=== PATIENT | female | born 1945 | race Caucasian/White ===

== ENCOUNTER → 2016-06-06 | Outpatient (CLI) | payer OTHER, BC ==
[~2016-06-06] MED LIST: ASP325 PO; COZ50 PO; MEV20 PO; MOTRIN800 MG PO; PRI20 PO; PROTONIX40 MG PO; PROZ10 PO
[2016-06-06 11:15] LABS: BASOPHIL % 0.7 % (0-2); RED CELL DISTRIBUTION WIDTH 14.2 % (11.5-14.5)
[2016-06-06 11:19] LABS: PLATELET COUNT 112 x10^3mcL (130-400)
[2016-06-06 11:22] LABS: CALCIUM 8.9 mg/dL (8.5-10.1); CHLORIDE SERUM 105 mmol/L (98-107); CREATININE SERUM 0.9 mg/dL (0.6-1.0); GLUCOSE SERUM 98 mg/dL (74-106); POTASSIUM SERUM 4.4 mmol/L (3.5-5.1); SODIUM SERUM 139 mmol/L (136-145)
[2016-06-06 11:34] LABS: FREE T4 1.19 ng/dL (0.76-1.46); FREE THYROXINE INDEX 3.4 ug/dL (1.4-4.5); T4(THYROXINE) 9.3 ug/dL (4.7-13.3)
[2016-06-06 11:42] LABS: ALBUMIN 3.4 g/dL (3.4-5.0); ALKALINE PHOSPHATASE 108 U/L (46-116); ALT/SGPT 33 U/L (14-59); AST/SGOT 81 U/L (15-37); BILIRUBIN TOTAL 1.79 mg/dL (0.20-1.00); HDL CHOLESTEROL 49 mg/dL (40-60); TOTAL PROTEIN, SERUM 7.7 g/dL (6.4-8.2); TRIGLYCERIDES 81 mg/dL (<150)
[2016-06-06 11:44] LABS: CHOLESTEROL 119 mg/dL (<200); CHOLESTEROL/HDL RATIO 2.4
[2016-06-06 12:03] LABS: T3 TOTAL 0.98 ng/mL
== END | disposition home or self-care (01) ==
LOC: LB 10:38
PROVIDERS: Family Medicine
DX: Z00.00 Encounter for general adult medical examination without abnormal findings (principal); E03.9 Hypothyroidism, unspecified; H53.123 Transient visual loss, bilateral
CPT/HCPCS: 84439

== ENCOUNTER 2016-08-01 19:09 | Emergency (ER) | payer OTHER, BC ==
[2016-08-01 21:32] VITALS: BP 124/73
== END 2016-08-01 21:32 | disposition home or self-care (01) ==
LOC: ED 19:09
DX: S32.2XXA Fracture of coccyx, initial encounter for closed fracture (principal); I10 Essential (primary) hypertension; Z85.3 Personal history of malignant neoplasm of breast; W17.89XA Other fall from one level to another, initial encounter; Y93.89 Activity, other specified; Y99.8 Other external cause status; Y92.89 Other specified places as the place of occurrence of the external cause
CPT/HCPCS: J1885

== ENCOUNTER 2016-08-16 11:26 | Inpatient (IN) | payer OTHER, BC ==
[~2016-08-16] VITALS: Ht 160 cm; Wt 70.9 kg
[2016-08-16 12:04] LABS: BASOPHIL % 0.2 % (0-2); PLATELET COUNT 115 x10^3mcL (130-400); RED CELL DISTRIBUTION WIDTH 14.4 % (11.5-14.5)
[2016-08-16 12:13] LABS: CARBON DIOXIDE 26.1 mmol/L (21-32); CHLORIDE SERUM 104 mmol/L (98-107); CREATININE SERUM 1.2 mg/dL (0.6-1.0); GLUCOSE SERUM 174 mg/dL (74-106); POTASSIUM SERUM 3.8 mmol/L (3.5-5.1); SODIUM SERUM 139 mmol/L (136-145)
[2016-08-16 12:19] LABS: ALKALINE PHOSPHATASE 136 U/L (46-116); ALT/SGPT 31 U/L (14-59); AST/SGOT 68 U/L (15-37); BILIRUBIN TOTAL 1.58 mg/dL (0.20-1.00); CHOLESTEROL 146 mg/dL (<200); TOTAL PROTEIN, SERUM 7.1 g/dL (6.4-8.2)
[2016-08-16 12:20] LABS: ALBUMIN 2.8 g/dL (3.4-5.0)
[2016-08-16 12:47] LABS: microscopic required? YES; urine erythrocyte NEGATIVE (NEGATIVE)
[2016-08-16 13:01] LABS: MAGNESIUM 1.9 mg/dL (1.8-2.4); T4(THYROXINE) 9.7 ug/dL (4.7-13.3)
[2016-08-16 13:01] LABS: AMPHETAMINE QUAL UR NONE DETECTED (NEG <=1000)
[2016-08-16] MEDS ORDERED: SYNTHROID0.15 MG PO (14:57)
[2016-08-16] MEDS ORDERED: HYDROXYZINE HYD25 MG PO (14:58)
[2016-08-16] MEDS ORDERED: NOR10T PO (15:00)
[2016-08-16] MEDS ORDERED: DICLOFENAC POTA50 MG PO (15:00)
[2016-08-16] MEDS ORDERED: AMITRIPTYLINE H50 MG PO (15:01)
[2016-08-16] MEDS ORDERED: ZANAFLEX CAPSULE2 MG PO (15:02)
[2016-08-16 16:22] VITALS: BP 149/95
[2016-08-16 21:47] VITALS: BP 125/92
[2016-08-17 06:11] LABS: BASOPHIL % 0.2 % (0-2); RED CELL DISTRIBUTION WIDTH 14.4 % (11.5-14.5)
[2016-08-17 06:12] VITALS: BP 161/94
[2016-08-17 06:24] LABS: CALCIUM 8.5 mg/dL (8.5-10.1); CARBON DIOXIDE 26.2 mmol/L (21-32); CHLORIDE SERUM 104 mmol/L (98-107); CHOLESTEROL 151 mg/dL (<200); CHOLESTEROL/HDL RATIO 3.1; CREATININE SERUM 0.9 mg/dL (0.6-1.0); GLUCOSE SERUM 82 mg/dL (74-106); HDL CHOLESTEROL 49 mg/dL (40-60); POTASSIUM SERUM 3.9 mmol/L (3.5-5.1); SODIUM SERUM 139 mmol/L (136-145); TRIGLYCERIDES 68 mg/dL (<150)
[2016-08-17 06:36] LABS: PLATELET COUNT 104 x10^3mcL (130-400)
[2016-08-17 09:01] VITALS: BP 161/94
[2016-08-17 14:08] VITALS: BP 151/83
[2016-08-17 17:03] VITALS: BP 149/84
[2016-08-17 20:28] VITALS: BP 178/95
[2016-08-17 21:19] VITALS: BP 140/90
[2016-08-18 05:18] VITALS: BP 163/111
[2016-08-18 06:43] LABS: BASOPHIL % 0.4 % (0-2); RED CELL DISTRIBUTION WIDTH 14.2 % (11.5-14.5)
[2016-08-18 06:53] LABS: PLATELET COUNT 108 x10^3mcL (130-400)
[2016-08-18 07:14] LABS: CALCIUM 8.9 mg/dL (8.5-10.1); CARBON DIOXIDE 28.6 mmol/L (21-32); CHLORIDE SERUM 104 mmol/L (98-107); GLUCOSE SERUM 106 mg/dL (74-106); MAGNESIUM 1.8 mg/dL (1.8-2.4); PHOSPHOROUS 3.9 mg/dL (2.5-4.9); SODIUM SERUM 140 mmol/L (136-145)
[2016-08-18 09:30] VITALS: BP 136/81
[2016-08-18 14:17] VITALS: BP 143/92
[2016-08-18 16:27] VITALS: BP 164/92
[2016-08-18 21:02] VITALS: BP 145/91
[2016-08-19 05:41] VITALS: BP 158/99
[2016-08-19 09:53] VITALS: BP 181/101
[2016-08-19 13:33] VITALS: BP 138/85
[2016-08-19 17:27] VITALS: BP 125/74
[2016-08-19 21:27] VITALS: BP 140/84
[2016-08-19 22:35] VITALS: Ht 160 cm; Wt 70.9 kg
[2016-08-20] VITALS (7 sets, daily range): BP systolic 123–142; BP diastolic 72–92
[2016-08-20 06:05] LABS: BASOPHIL % 1.8 % (0-2); RED CELL DISTRIBUTION WIDTH 14.2 % (11.5-14.5)
[2016-08-20 06:34] LABS: CALCIUM 8.3 mg/dL (8.5-10.1); CARBON DIOXIDE 25.8 mmol/L (21-32); CHLORIDE SERUM 105 mmol/L (98-107); CREATININE SERUM 0.9 mg/dL (0.6-1.0); GLUCOSE SERUM 91 mg/dL (74-106); MAGNESIUM 1.7 mg/dL (1.8-2.4); PHOSPHOROUS 3.8 mg/dL (2.5-4.9); POTASSIUM SERUM 3.8 mmol/L (3.5-5.1); SODIUM SERUM 137 mmol/L (136-145)
[2016-08-20 06:59] LABS: PLATELET COUNT 93 x10^3mcL (130-400)
[2016-08-21 06:04] VITALS: BP 143/87
[2016-08-21 07:40] VITALS: BP 148/73
[2016-08-21 10:19] VITALS: BP 113/81
[2016-08-21 14:04] VITALS: BP 138/79
[2016-08-21 19:21] VITALS: BP 127/80
[2016-08-21 20:29] VITALS: BP 141/94
[2016-08-22 06:02] VITALS: BP 148/86
[2016-08-22 07:31] LABS: CALCIUM 8.8 mg/dL (8.5-10.1); CARBON DIOXIDE 29.2 mmol/L (21-32); CHLORIDE SERUM 106 mmol/L (98-107); CREATININE SERUM 0.9 mg/dL (0.6-1.0); GLUCOSE SERUM 86 mg/dL (74-106); MAGNESIUM 1.7 mg/dL (1.8-2.4); PHOSPHOROUS 3.9 mg/dL (2.5-4.9); POTASSIUM SERUM 3.9 mmol/L (3.5-5.1); SODIUM SERUM 138 mmol/L (136-145)
[2016-08-22 07:52] LABS: BASOPHIL % 0.7 % (0-2); RED CELL DISTRIBUTION WIDTH 14.5 % (11.5-14.5)
[2016-08-22 07:57] LABS: PLATELET COUNT 88 x10^3mcL (130-400)
[2016-08-22 09:58] VITALS: BP 135/81
[2016-08-22 13:21] VITALS: BP 146/92
[2016-08-22 17:06] VITALS: BP 112/74
[2016-08-23 05:59] VITALS: BP 147/93
[2016-08-23 08:30] VITALS: BP 142/88
[2016-08-23 10:10] VITALS: BP 134/85
[2016-08-23 20:53] VITALS: BP 124/67
[2016-08-23 20:55] VITALS: BP 135/81
[2016-08-24 05:52] VITALS: BP 144/84
[2016-08-24 06:26] LABS: BASOPHIL % 0.1 % (0-2); RED CELL DISTRIBUTION WIDTH 14.3 % (11.5-14.5)
[2016-08-24 06:33] LABS: CARBON DIOXIDE 28.2 mmol/L (21-32); CHLORIDE SERUM 103 mmol/L (98-107); CREATININE SERUM 0.8 mg/dL (0.6-1.0); GLUCOSE SERUM 85 mg/dL (74-106); MAGNESIUM 1.8 mg/dL (1.8-2.4); PHOSPHOROUS 4.3 mg/dL (2.5-4.9); POTASSIUM SERUM 3.6 mmol/L (3.5-5.1); SODIUM SERUM 138 mmol/L (136-145)
[2016-08-24 06:45] LABS: PLATELET COUNT 88 x10^3mcL (130-400)
[2016-08-24 13:45] VITALS: BP 136/92
[2016-08-24] MEDS ORDERED: IPRATROPIUM BROM3 M2 HHN (14:23)
[2016-08-24] MEDS ORDERED: HAL5 PO (14:23)
[2016-08-24] MEDS ORDERED: COL100 PO (14:23)
[2016-08-24] MEDS ORDERED: THI100 PO (14:24)
[2016-08-24] MEDS ORDERED: FOL1 PO (14:24)
[2016-08-24 14:51] VITALS: BP 136/92
[2016-08-24] MEDS ORDERED: ATI1 PO (15:47)
[2016-08-24] MEDS ORDERED: COG1 PO (15:48)
[2016-08-24] MEDS ORDERED: LAC30L PO (15:49)
[2016-08-24] MEDS ORDERED: CLA10 PO (15:50)
[2016-08-24] MEDS ORDERED: PROZ20 PO (15:52)
[2016-08-24] MEDS ORDERED: THERA TABS1 TAB PO (15:53)
== END 2016-08-24 16:45 | DRG 441 ==
LOC: ED 11:26 → DU 14:31
PROVIDERS: Emergency Medicine; Family Medicine; ADMIT Family Medicine
DX: K72.01 Acute and subacute hepatic failure with coma (principal); E43 Unspecified severe protein-calorie malnutrition; N17.0 Acute kidney failure with tubular necrosis; N39.0 Urinary tract infection, site not specified; F10.231 Alcohol dependence with withdrawal delirium; K70.30 Alcoholic cirrhosis of liver without ascites; B18.2 Chronic viral hepatitis C; M54.5 Low back pain; F41.8 Other specified anxiety disorders; I10 Essential (primary) hypertension; I25.10 Atherosclerotic heart disease of native coronary artery without angina pectoris; E03.9 Hypothyroidism, unspecified; Z68.27 Body mass index [BMI] 27.0-27.9, adult; Z95.5 Presence of coronary angioplasty implant and graft; Z87.891 Personal history of nicotine dependence
CPT/HCPCS: 83880; 97110-GP; 97116-GP; 97530-GP; G0480; J0696; J1630; J2060; J3475; J3490; J7030; Q0092

== ENCOUNTER 2016-08-25 01:10 | Inpatient (IN) | payer OTHER, BC ==
[~2016-08-25] VITALS: Ht 160 cm; Wt 70.8 kg
[~2016-08-25 01:10] MED LIST changes: +AMITRIPTYLINE H50 MG PO; +ATI1 PO; +CLA10 PO; +COG1 PO; +COL100 PO; +DICLOFENAC POTA50 MG PO; +FOL1 PO; +HAL5 PO; +HYDROXYZINE HYD25 MG PO; +IPRATROPIUM BROM3 M2 HHN; +LAC30L PO; +NOR10T PO; +PROZ20 PO; +SYNTHROID0.15 MG PO; +THERA TABS1 TAB PO; +THI100 PO; +ZANAFLEX CAPSULE2 MG PO
[2016-08-25 01:11] VITALS: BP 114/74
[2016-08-25 03:11] LABS: BASOPHIL % 0.4 % (0-2); RED CELL DISTRIBUTION WIDTH 13.9 % (11.5-14.5)
[2016-08-25 03:17] LABS: PLATELET COUNT 109 x10^3mcL (130-400)
[2016-08-25 03:56] LABS: T3 TOTAL 0.86 ng/mL
[2016-08-25 04:44] LABS: ALKALINE PHOSPHATASE 104 U/L (46-116); ALT/SGPT 39 U/L (14-59); AMYLASE 65 U/L (25-115); AST/SGOT 71 U/L (15-37); BILIRUBIN TOTAL 1.65 mg/dL (0.20-1.00); CALCIUM 8.7 mg/dL (8.5-10.1); CARBON DIOXIDE 24.1 mmol/L (21-32); CHLORIDE SERUM 103 mmol/L (98-107); CHOLESTEROL 140 mg/dL (<200); CHOLESTEROL/HDL RATIO 3.4; CREATININE SERUM 1.2 mg/dL (0.6-1.0); GLUCOSE SERUM 87 mg/dL (74-106); HDL CHOLESTEROL 41 mg/dL (40-60); LIPASE 243 IU/L (73-393); MAGNESIUM 1.7 mg/dL (1.8-2.4); PHOSPHOROUS 5.4 mg/dL (2.5-4.9); POTASSIUM SERUM 3.9 mmol/L (3.5-5.1); SODIUM SERUM 136 mmol/L (136-145); TOTAL PROTEIN, SERUM 7.1 g/dL (6.4-8.2); TRIGLYCERIDES 65 mg/dL (<150)
[2016-08-25 04:52] LABS: ALBUMIN 2.8 g/dL (3.4-5.0)
[2016-08-25 05:01] LABS: FREE T4 1.36 ng/dL (0.76-1.46); FREE THYROXINE INDEX 3.3 ug/dL (1.4-4.5); T4(THYROXINE) 9.8 ug/dL (4.7-13.3)
[2016-08-25 06:22] VITALS: BP 112/76
[2016-08-25 10:01] VITALS: BP 117/72
[2016-08-25 13:48] VITALS: BP 118/74
[2016-08-25 17:38] VITALS: BP 110/73
[2016-08-25 21:15] VITALS: BP 143/87
[2016-08-26 05:40] VITALS: BP 142/80
[2016-08-26 07:06] LABS: PLATELET COUNT 80 x10^3mcL (130-400)
[2016-08-26 07:11] LABS: CALCIUM 8.9 mg/dL (8.5-10.1); CARBON DIOXIDE 25.2 mmol/L (21-32); CHLORIDE SERUM 103 mmol/L (98-107); CREATININE SERUM 0.9 mg/dL (0.6-1.0); GLUCOSE SERUM 82 mg/dL (74-106); MAGNESIUM 1.9 mg/dL (1.8-2.4); POTASSIUM SERUM 4.1 mmol/L (3.5-5.1); SODIUM SERUM 138 mmol/L (136-145)
[2016-08-26 08:58] LABS: BAND NEUTROPHIL 2 % (0-10); BASOPHIL 0 % (0-2); MONOCYTE 21 % (0-7); SEGMENTED NEUTROPHILS 53 % (37-75)
[2016-08-26 09:58] VITALS: BP 153/85
[2016-08-26 14:05] VITALS: BP 143/86
[2016-08-26 17:48] VITALS: BP 164/103
[2016-08-26 21:00] VITALS: BP 164/92
[2016-08-27 05:14] VITALS: BP 152/97
[2016-08-27 08:17] LABS: BASOPHIL % 0.9 % (0-2); RED CELL DISTRIBUTION WIDTH 13.6 % (11.5-14.5)
[2016-08-27 08:20] LABS: PLATELET COUNT 80 x10^3mcL (130-400)
[2016-08-27 08:47] VITALS: BP 162/91
[2016-08-27 09:09] LABS: CARBON DIOXIDE 27.2 mmol/L (21-32); CHLORIDE SERUM 104 mmol/L (98-107); CREATININE SERUM 0.7 mg/dL (0.6-1.0); GLUCOSE SERUM 89 mg/dL (74-106); MAGNESIUM 1.4 mg/dL (1.8-2.4); PHOSPHOROUS 3.5 mg/dL (2.5-4.9); POTASSIUM SERUM 3.6 mmol/L (3.5-5.1); SODIUM SERUM 138 mmol/L (136-145)
[2016-08-27 11:00] VITALS: BP 129/90
[2016-08-27 13:18] VITALS: Ht 160 cm; Wt 70.8 kg
[2016-08-27 13:28] VITALS: BP 153/83
[2016-08-27 21:25] VITALS: BP 146/95
[2016-08-28 04:55] VITALS: BP 145/93
[2016-08-28 07:08] LABS: CARBON DIOXIDE 26.2 mmol/L (21-32); CHLORIDE SERUM 104 mmol/L (98-107); CREATININE SERUM 0.8 mg/dL (0.6-1.0); GLUCOSE SERUM 84 mg/dL (74-106); MAGNESIUM 1.7 mg/dL (1.8-2.4); PHOSPHOROUS 4.1 mg/dL (2.5-4.9); POTASSIUM SERUM 3.5 mmol/L (3.5-5.1); SODIUM SERUM 139 mmol/L (136-145)
[2016-08-28 08:07] LABS: BASOPHIL % 0.4 % (0-2); PLATELET COUNT 79 x10^3mcL (130-400); RED CELL DISTRIBUTION WIDTH 13.6 % (11.5-14.5)
[2016-08-28 09:10] VITALS: BP 153/86
[2016-08-28 12:39] VITALS: BP 166/94
[2016-08-28] MEDS ORDERED: BAY PO (15:25)
[2016-08-28] MEDS ORDERED: COG1 PO (15:27)
[2016-08-28] MEDS ORDERED: COZ50 PO (15:29)
[2016-08-28] MEDS ORDERED: LAC30L PO (15:31)
[2016-08-28] MEDS ORDERED: XIFAXAN550 M1 PO (15:33)
[2016-08-28] MEDS ORDERED: LIPI20 PO (15:34)
[2016-08-28 16:21] VITALS: BP 151/80
== END 2016-08-28 16:40 | DRG 432 ==
LOC: DU 01:10
PROVIDERS: ADMIT Family Medicine
DX: K70.41 Alcoholic hepatic failure with coma (principal); N17.0 Acute kidney failure with tubular necrosis; E43 Unspecified severe protein-calorie malnutrition; F10.239 Alcohol dependence with withdrawal, unspecified; K70.30 Alcoholic cirrhosis of liver without ascites; K74.69 Other cirrhosis of liver; B18.2 Chronic viral hepatitis C; D53.9 Nutritional anemia, unspecified; I10 Essential (primary) hypertension; E03.9 Hypothyroidism, unspecified; Z68.27 Body mass index [BMI] 27.0-27.9, adult
CPT/HCPCS: 83880; 84439; 97110-GP; 97116-GP; 97530-GP; J2060; J3475; J7030; Q0092